=== PATIENT | female | born 1970 | race Caucasian/White ===

== ENCOUNTER → 2017-04-16 | Outpatient (CLI) | payer BC ==
[~2017-04-16] MED LIST: FLEXERIL10 MG PO; IBUPROFEN800 MG PO; LORTAB 5/500 501 TAB PO
--- NOTE | 2017-04-17 12:29 | RADIOLOGY REPORT PS360 ---
US BREAST-RT COMPLETE W/AXILLA COMPARISON: Ultrasound of 12/20/2014 INDICATION: Follow-up cyst ORDERING PHYSICIAN: Steven Gillette MD PATIENT AGE: 47 years TECHNIQUE: Standard ultrasound of the breast FINDINGS: Echo dense fibrocystic changes noted. There is a 2.6 x 2.3 cm cyst at 9:00, 2.5 x 2.5 cm cyst at 10:00, 5 mm cyst at 9:00. 1.9 x 0.47 m cyst at 10:00 near the nipple and 1 cm cyst at 11:00 near the nipple. IMPRESSION: Multiple breast cysts BI-RADS CATEGORY: 2_Benign RECOMMENDED FOLLOWUP: Recommend mammogram for further evaluation (A letter has been sent to the patient regarding results of the study.)
--- NOTE | 2017-04-17 12:32 | RADIOLOGY REPORT PS360 ---
US BREAST-LT COMPLETE W/AXILLA COMPARISON: 12/20/2014 INDICATION: Fibrocystic breast disease ORDERING PHYSICIAN: Steven Gillette MD PATIENT AGE: 47 years TECHNIQUE: Standard breast ultrasound FINDINGS: Echo dense fibrocystic changes. 7 mm cyst at 12:00, 12 mm cyst at 12:00 near the nipple, 10 mm cyst at 1:00 near the nipple, 10 mm cyst at 2:00 outer, complex 22 x 9 mm cyst at 3:00 with internal septations, 22 x 18 mm cyst at 3:00, 12 mm cyst at 5:00, 6 mm cyst at 6:00, 11 x 5 mm cyst at 9:00, complex 16 mm cyst at 9:00 near the nipple, 6 mm cyst at 11:00 near the nipple. No solid suspicious lesions evident. IMPRESSION: Multiple breast cysts BI-RADS CATEGORY: 2_Benign RECOMMENDED FOLLOWUP: Correlation with mammogram (A letter has been sent to the patient regarding results of the study.)
--- NOTE | 2017-04-22 11:11 | RADIOLOGY REPORT PS360 ---
DIG MAMM-SCREEN DEREK W/CAD CAD Screening COMPARISON: Digital mammograms 02/27/2016 and 12/20/2014 INDICATION: There is no personal or family history of breast cancer. There has been previous cyst aspiration right breast. TECHNIQUE: Standard CC and MLO images were obtained. R2 CAD reviewed. FINDINGS: There is extremely dense and heterogenic parenchymal pattern with multiple nodular densities in each breast and the appearance is consistent with prominent fibrocystic change. There are stable prominent nodular and likely cystic lesions in the outer quadrants of each breast. Ultrasound performed same date. Show numerous cystic lesions in each breast with no suspicious solid lesions either breast noted. There is no new or suspicious lesion and no suspicious microcalcifications. There are small nodes in both axilla. IMPRESSION: Markedly dense and heterogenic parenchymal pattern definitely lessening the sensitivity of mammography with no definite suspicious lesion seen recommend yearly follow-up BI-RADS CATEGORY: 2_Benign RECOMMENDED FOLLOWUP: 12M 12 MONTH FOLLOW-UP (A letter has been sent to the patient regarding results of the study.)
== END ==
LOC: RAD 15:30
DX: Z12.31 Encounter for screening mammogram for malignant neoplasm of breast (principal); N60.12 Diffuse cystic mastopathy of left breast; N60.11 Diffuse cystic mastopathy of right breast
CPT/HCPCS: G0202